=== PATIENT | female | born 1990 | race Caucasian/White ===

== ENCOUNTER → 2017-06-11 | Emergency (ER) | payer OTHER ==
[~2017-06-11] VITALS: Ht 162.6 cm; Wt 47.2 kg
== END | disposition left against medical advice (07) ==
LOC: ER 18:09
DX: Z53.20 Procedure and treatment not carried out because of patient's decision for unspecified reasons (principal)

== ENCOUNTER 2018-05-21 18:46 | Emergency (ER) | payer OTHER ==
[~2018-05-21] VITALS: Ht 165.1 cm; Wt 48.5 kg
== END 2018-05-21 19:50 | disposition home or self-care (01) ==
LOC: ER 18:46
DX: L03.011 Cellulitis of right finger (principal)

== ENCOUNTER 2018-06-09 19:51 | Emergency (ER) | payer OTHER ==
[~2018-06-09] VITALS: Ht 167.6 cm; Wt 59.0 kg
== END 2018-06-09 22:49 | disposition home or self-care (01) ==
LOC: ER 19:51
DX: J11.1 Influenza due to unidentified influenza virus with other respiratory manifestations (principal)

== ENCOUNTER 2019-02-08 12:49 | Emergency (ER) | payer OTHER ==
[~2019-02-08] VITALS: Ht 162.6 cm; Wt 47.6 kg
[2019-02-08] MEDS ORDERED: VOLTAREN-XR100 MG PO (17:58)
== END 2019-02-08 19:15 | disposition home or self-care (01) ==
LOC: ER 12:49
DX: M94.0 Chondrocostal junction syndrome [Tietze] (principal)

== ENCOUNTER 2022-07-19 22:00 | Emergency (ER) | payer OTHER ==
[~2022-07-19] VITALS: Ht 165.1 cm; Wt 49.0 kg
[~2022-07-19 22:00] MED LIST: VOLTAREN-XR100 MG PO
== END 2022-07-19 23:25 | disposition home or self-care (01) ==
LOC: ER 22:00
DX: N94.6 Dysmenorrhea, unspecified (principal)